=== PATIENT | female | born 1995 ===

== ENCOUNTER 2020-10-25 18:44 | Outpatient (CLI) | payer SELFPAY ==
[2020-10-25 19:14] VITALS: BP 129/80
== END 2020-10-25 20:25 | disposition home or self-care (01) ==
LOC: TRG 18:44 → APU 18:45 → TRG 20:25
PROVIDERS: ATTEND Obstetrics & Gynecology
DX: O46.93 Antepartum hemorrhage, unspecified, third trimester (principal); O26.893 Other specified pregnancy related conditions, third trimester; R10.9 Unspecified abdominal pain; Z3A.38 38 weeks gestation of pregnancy
CPT/HCPCS: 59025

== ENCOUNTER 2020-10-27 02:00 | Inpatient (IN) | payer MEDICAID, OTHER ==
[2020-10-27] MEDS ORDERED: LACTATED RINGERS 1,000 ML IV ONE (02:41)
[2020-10-27 04:01] LABS: Bacteria,Urine 1+ /HPF (Negative); Bilirubin,Urine NEG (Negative); Blood,Urine LG (Negative); Color,Urine Straw (Yellow); Protein,Urine <15 mg/dL mg/dL (Negative); Urobilinogen,Urine < 2.0 mg/dL (<2.0)
[2020-10-27 04:06] LABS: Amphetamine Screen,Urine PRESUMPTIVE NEGATIVE; Benzodiazepines Screen,Urine PRESUMPTIVE NEGATIVE; Cannabinoid Screen,Urine PRESUMPTIVE NEGATIVE; Cocaine Screen,Urine PRESUMPTIVE NEGATIVE; Methadone Screen,Urine PRESUMPTIVE NEGATIVE; Opiate Screen,Urine PRESUMPTIVE NEGATIVE
[2020-10-27] MEDS ORDERED: MINERAL OIL 30 ML ORAL LIQD PO PRN ×2 (05:34→22:00)
[2020-10-27] MEDS ORDERED: TERBUTALINE 1 MG/1 ML INJ SUB-Q PRN (05:34)
[2020-10-27] MEDS ORDERED: ePHEDrine SULFATE 50 MG/1 ML INJ IV PRN ×2 (05:34→14:58)
--- NOTE | 2020-10-27 05:42 | History and Physical Report ---
History of Present Illness Date of examination: 10/27/20 Date of admission: 10/27/2020 Chief complaint: Contractions History of present illness: 25 year old presented to L&D with painful uterine contractions. Patient denies LOF or VB. Patient received care at [facility] and she brings records with her. LMP 01/29/2020. EDC 11/04/2020. significant for the following: rubella nonimmune, anemia, chlamydia (treated, BRAYAN negative). labs are as follows: A+, antibody screen negative, rubella nonimmune, HIV negative, RPR nonreactive, hepatitis B surface antigen negative, gonorrhea negative, chlamydia positive/negative, AFP negative, 1 hour sugar test 84, GBS negative. Patient had category 2 FHR tracing in triage; BPP performed and was 8/8. Variable FHR decelerations noted. Patient has regular contractions and requires pain medications. Due to the above, patient was admitted for 23 hour observation. Past History Past Medical History: no pertinent history Past Surgical History: no surgical history [employer] History: chlamydia (treated during and BRAYAN negative). denies: gonorrhea, hepatitis B, hepatitis C, herpes, HIV, syphilis, trichomonas Family/Genetic History: none Social history: full code. denies: smoking, alcohol abuse, prescription drug abuse, IV drug use - Obstetrical History Expected Date of Delivery: 11/04/20 Actual Gestation: 38 Week(s) 6 Day(s) : 1 Para: 0 Hx # Term Pregnancies: 0 Number of Pregnancies: 0 Spontaneous Abortions: 0 Induced : 0 Number of Living Children: 0 Medications and Allergies Allergies Allergy/AdvReac Type Severity Reaction Status Date / Time No Known Allergies Allergy Unverified 10/25/20 19:41 Active Meds: Active Medications Ephedrine Sulfate (Ephedrine Sulfate 50 Mg/1 Ml Inj) 10 mg IV Q2M PRN PRN Reason: Hypotension Fentanyl (Fentanyl 100 Mcg/2 Ml Inj) 100 mcg IV Q2H PRN PRN Reason: Pain,Severe (7-10) LABOR PAIN Lactated Ringer's (Lactated Ringers) 1,000 mls @ 125 mls/hr IV DIRECT SULEMAN Mineral Oil (Mineral Oil 30 Ml Oral Liqd) 30 ml PO QHS PRN PRN Reason: Constipation Terbutaline Sulfate (Terbutaline 1 Mg/1 Ml Inj) 0.25 mg SUB-Q ONCE PRN PRN Reason: Hyperstimulation/Hypertonicity Review of Systems All systems: negative (contractions) - Vital Signs Vital signs: Vital Signs Pulse BP Pulse Ox 71 138/84 99 10/27/20 02:16 10/27/20 02:16 10/27/20 02:16 Temp Pulse Resp BP Pulse Ox 98.6 F 68 18 126/83 93 10/27/20 02:18 10/27/20 05:25 10/27/20 02:18 10/27/20 05:16 10/27/20 05:25 - Physical Exam Abdomen: Positive: soft. Negative: distention, tenderness, guarding, rigidity Genitourinary (Female): Positive: normal external genitalia, normal perenium. Negative: perineal/vulvar lesions Vagina: Positive: normal moisture Uterus: Positive: enlarged. Negative: tender Anus/Rectum: Positive: normal perianal skin Extremities: Positive: normal. Negative: tenderness, edema - Obstetrical FHR: category 2 FHR comments: Variable FHR decelerations; BPP 8/8; normal MARY. Uterine Contraction Monitor Mode: External Cervical Dilatation: 1 Cervical Effacement Percentage: 80 station: -1 Uterine Contraction Pattern: Regular Uterine Contraction Intensity: Moderate Results All other labs normal. Assessment and Plan A: at 38 weeks, 6 days gestation. Prodromal labor versus false labor: patient requires pain medication. Category 2 FHR tracing. GBS negative. P: Admit for observation. Continuous EFM. IV pain medication. Recheck cervix in several hours.
--- NOTE | 2020-10-27 05:49 | Ultrasound Report ---
ULTRASOUND BIOPHYSICAL PROFILE INDICATION / CLINICAL INFORMATION: Evaluate well-being COMPARISON: None FINDINGS: BREATHING MOVEMENT = 2 GROSS BODY MOVEMENT = 2 TONE = 2 QUALITATIVE AMNIOTIC FLUID VOLUME = 2 TOTAL BIOPHYSICAL SCORE = 12/21 AMNIOTIC FLUID INDEX (cm) = 10.9 PRESENTATION: Cephalic. HEART RATE (beats per minute): 130 IMPRESSION: 1. biophysical profile = 12/21 Signer Name: Ivania Llanes MD Signed: 10/27/2020 5:44 AM Workstation Name: [id number]
[2020-10-27] MEDS: LACTATED RINGERS 1,000 ML IV SCH ×4 (06:36→16:15)
[2020-10-27] MEDS: fentaNYL 100 MCG/2 ML INJ IV PRN ×2 (06:36→12:51)
[2020-10-27 09:28] LABS: Hematocrit 32.8 % (30.3-42.9); Hemoglobin 10.7 gm/dl (10.1-14.3); Mean Corpuscular HGB Conc 33 % (30-34); Mean Corpuscular Volume 89 fl (79-97); Platelet Count 198 K/mm3 (140-440); Red Cell Distribution Width 16.4 % (13.2-15.2)
--- NOTE | 2020-10-27 13:37 | Progress Note ---
Assessment and Plan A: IUP @ 38 6/7 Weeks Category I Tracing Early Labor GBS Negative P: Start Pitocin Augmentation IV Pain Control Subjective - Subjective Date of service: 10/27/20 Patient reports: movement normal, contractions Objective - Vital Signs Vital Signs: Vital Signs - 12hr 10/27/20 10/27/20 10/27/20 02:16 02:18 02:21 Temperature 98.6 F Pulse Rate 82 77 77 Respiratory 18 Rate Blood Pressure 138/84 Blood Pressure 130/90 [Left] O2 Sat by Pulse 99 99 98 Oximetry 10/27/20 10/27/20 10/27/20 02:26 02:31 02:32 Temperature Pulse Rate 91 H 70 74 Respiratory Rate Blood Pressure 130/90 Blood Pressure [Left] O2 Sat by Pulse 99 100 Oximetry 10/27/20 10/27/20 10/27/20 02:36 02:41 02:46 Temperature Pulse Rate 73 78 82 Respiratory Rate Blood Pressure 129/86 Blood Pressure [Left] O2 Sat by Pulse 99 98 99 Oximetry 10/27/20 10/27/20 10/27/20 02:51 03:03 03:08 Temperature Pulse Rate 72 72 79 Respiratory Rate Blood Pressure Blood Pressure [Left] O2 Sat by Pulse 99 100 99 Oximetry 10/27/20 10/27/20 10/27/20 03:13 03:16 03:18 Temperature Pulse Rate 72 67 76 Respiratory Rate Blood Pressure 127/84 Blood Pressure [Left] O2 Sat by Pulse 99 100 Oximetry 10/27/20 10/27/20 10/27/20 03:23 03:28 03:32 Temperature Pulse Rate 78 85 72 Respiratory Rate Blood Pressure 125/81 Blood Pressure [Left] O2 Sat by Pulse 99 99 Oximetry 10/27/20 10/27/20 10/27/20 03:33 03:38 03:43 Temperature Pulse Rate 84 82 78 Respiratory Rate Blood Pressure Blood Pressure [Left] O2 Sat by Pulse 99 99 99 Oximetry 10/27/20 10/27/20 10/27/20 03:46 03:48 03:53 Temperature Pulse Rate 79 86 79 Respiratory Rate Blood Pressure 123/83 Blood Pressure [Left] O2 Sat by Pulse 99 99 Oximetry 10/27/20 10/27/20 10/27/20 03:58 04:02 04:03 Temperature Pulse Rate 78 77 77 Respiratory Rate Blood Pressure 121/83 Blood Pressure [Left] O2 Sat by Pulse 99 100 Oximetry 10/27/20 10/27/20 10/27/20 04:08 04:13 04:17 Temperature Pulse Rate 82 74 83 Respiratory Rate Blood Pressure 131/83 Blood Pressure [Left] O2 Sat by Pulse 99 99 Oximetry 10/27/20 10/27/20 10/27/20 04:18 04:23 04:28 Temperature Pulse Rate 81 77 73 Respiratory Rate Blood Pressure Blood Pressure [Left] O2 Sat by Pulse 99 99 99 Oximetry 10/27/20 10/27/20 10/27/20 04:31 04:33 04:38 Temperature Pulse Rate 77 77 79 Respiratory Rate Blood Pressure 120/75 Blood Pressure [Left] O2 Sat by Pulse 99 99 Oximetry 10/27/20 10/27/20 10/27/20 04:43 04:47 04:48 Temperature Pulse Rate 85 75 87 Respiratory Rate Blood Pressure 131/78 Blood Pressure [Left] O2 Sat by Pulse 99 99 Oximetry 10/27/20 10/27/20 10/27/20 04:53 04:58 05:02 Temperature Pulse Rate 79 83 80 Respiratory Rate Blood Pressure 125/80 Blood Pressure [Left] O2 Sat by Pulse 99 99 Oximetry 10/27/20 10/27/20 10/27/20 05:03 05:08 05:09 Temperature Pulse Rate 85 86 79 Respiratory Rate Blood Pressure Blood Pressure [Left] O2 Sat by Pulse 99 99 93 Oximetry 10/27/20 10/27/20 10/27/20 05:13 05:16 05:18 Temperature Pulse Rate 85 76 77 Respiratory Rate Blood Pressure 126/83 Blood Pressure [Left] O2 Sat by Pulse 99 98 Oximetry 10/27/20 10/27/20 10/27/20 05:23 05:25 05:42 Temperature Pulse Rate 79 68 Respiratory Rate Blood Pressure Blood Pressure [Left] O2 Sat by Pulse 99 93 78 L Oximetry 10/27/20 10/27/20 10/27/20 06:16 06:33 06:36 Temperature Pulse Rate 76 81 Respiratory 18 Rate Blood Pressure 118/86 120/79 Blood Pressure [Left] O2 Sat by Pulse Oximetry 10/27/20 10/27/20 10/27/20 06:41 06:42 06:45 Temperature Pulse Rate 89 88 Respiratory Rate Blood Pressure 127/77 Blood Pressure [Left] O2 Sat by Pulse 88 99 Oximetry 10/27/20 10/27/20 10/27/20 06:47 06:52 06:57 Temperature Pulse Rate 86 82 81 Respiratory Rate Blood Pressure Blood Pressure [Left] O2 Sat by Pulse 98 98 97 Oximetry 10/27/20 10/27/20 10/27/20 07:01 07:02 07:07 Temperature Pulse Rate 77 89 77 Respiratory Rate Blood Pressure 110/68 Blood Pressure [Left] O2 Sat by Pulse 97 98 Oximetry 10/27/20 10/27/20 10/27/20 07:12 07:17 07:22 Temperature Pulse Rate 90 71 77 Respiratory Rate Blood Pressure 111/70 Blood Pressure [Left] O2 Sat by Pulse 97 98 99 Oximetry 10/27/20 10/27/20 10/27/20 07:24 07:27 07:31 Temperature 97.3 F L Pulse Rate 83 85 Respiratory 16 Rate Blood Pressure 98/64 Blood Pressure [Left] O2 Sat by Pulse 98 Oximetry 10/27/20 10/27/20 10/27/20 07:32 07:37 07:42 Temperature Pulse Rate 89 75 84 Respiratory Rate Blood Pressure Blood Pressure [Left] O2 Sat by Pulse 99 99 98 Oximetry 10/27/20 10/27/20 10/27/20 07:46 07:47 07:52 Temperature Pulse Rate 83 76 78 Respiratory Rate Blood Pressure 111/63 Blood Pressure [Left] O2 Sat by Pulse 100 99 Oximetry 10/27/20 10/27/20 10/27/20 07:57 08:01 08:02 Temperature Pulse Rate 69 72 84 Respiratory Rate Blood Pressure 123/80 Blood Pressure [Left] O2 Sat by Pulse 99 100 Oximetry 10/27/20 10/27/20 10/27/20 08:07 08:12 08:16 Temperature Pulse Rate 76 75 68 Respiratory Rate Blood Pressure 121/79 Blood Pressure [Left] O2 Sat by Pulse 99 99 Oximetry 10/27/20 10/27/20 10/27/20 08:17 08:22 08:27 Temperature Pulse Rate 70 73 72 Respiratory Rate Blood Pressure Blood Pressure [Left] O2 Sat by Pulse 99 98 99 Oximetry 10/27/20 10/27/20 10/27/20 08:31 08:32 08:37 Temperature Pulse Rate 75 72 71 Respiratory Rate Blood Pressure 125/82 Blood Pressure [Left] O2 Sat by Pulse 99 99 Oximetry 10/27/20 10/27/20 10/27/20 08:42 08:47 08:52 Temperature Pulse Rate 73 76 71 Respiratory Rate Blood Pressure Blood Pressure [Left] O2 Sat by Pulse 99 99 99 Oximetry 10/27/20 10/27/20 10/27/20 08:57 09:01 09:02 Temperature Pulse Rate 67 81 72 Respiratory Rate Blood Pressure 122/71 Blood Pressure [Left] O2 Sat by Pulse 99 99 Oximetry 10/27/20 10/27/20 10/27/20 09:07 09:12 09:17 Temperature Pulse Rate 89 72 74 Respiratory Rate Blood Pressure 132/89 Blood Pressure [Left] O2 Sat by Pulse 100 99 99 Oximetry 10/27/20 10/27/20 10/27/20 09:28 09:31 09:32 Temperature Pulse Rate 69 63 66 Respiratory Rate Blood Pressure 129/78 130/84 Blood Pressure [Left] O2 Sat by Pulse 99 Oximetry 10/27/20 10/27/20 10/27/20 09:33 09:38 09:43 Temperature Pulse Rate 74 75 76 Respiratory Rate Blood Pressure Blood Pressure [Left] O2 Sat by Pulse 100 99 99 Oximetry 10/27/20 10/27/20 10/27/20 09:48 09:53 09:58 Temperature Pulse Rate 69 81 91 H Respiratory Rate Blood Pressure Blood Pressure [Left] O2 Sat by Pulse 99 100 99 Oximetry 10/27/20 10/27/20 10/27/20 10:03 10:08 10:13 Temperature Pulse Rate 68 77 71 Respiratory Rate Blood Pressure Blood Pressure [Left] O2 Sat by Pulse 99 99 99 Oximetry 10/27/20 10/27/20 10/27/20 10:18 10:23 10:28 Temperature Pulse Rate 83 73 76 Respiratory Rate Blood Pressure Blood Pressure [Left] O2 Sat by Pulse 99 99 99 Oximetry 10/27/20 10/27/20 10/27/20 10:33 10:38 10:43 Temperature Pulse Rate 74 97 H 65 Respiratory Rate Blood Pressure 96/62 Blood Pressure [Left] O2 Sat by Pulse 99 99 99 Oximetry 10/27/20 10/27/20 10/27/20 10:48 10:53 10:58 Temperature Pulse Rate 64 73 77 Respiratory Rate Blood Pressure Blood Pressure [Left] O2 Sat by Pulse 99 99 99 Oximetry 10/27/20 10/27/20 10/27/20 11:03 11:08 11:13 Temperature Pulse Rate 78 79 68 Respiratory Rate Blood Pressure Blood Pressure [Left] O2 Sat by Pulse 99 99 99 Oximetry 10/27/20 10/27/20 10/27/20 11:18 11:23 11:28 Temperature Pulse Rate 79 68 70 Respiratory Rate Blood Pressure Blood Pressure [Left] O2 Sat by Pulse 100 100 99 Oximetry 10/27/20 10/27/20 10/27/20 11:33 11:38 11:43 Temperature Pulse Rate 90 71 77 Respiratory Rate Blood Pressure 113/82 Blood Pressure [Left] O2 Sat by Pulse 100 99 99 Oximetry 10/27/20 10/27/20 10/27/20 11:48 11:53 11:58 Temperature Pulse Rate 69 93 H 66 Respiratory Rate Blood Pressure Blood Pressure [Left] O2 Sat by Pulse 99 100 99 Oximetry 10/27/20 10/27/20 10/27/20 12:03 12:11 12:15 Temperature 98.4 F Pulse Rate 71 Respiratory 18 Rate Blood Pressure Blood Pressure [Left] O2 Sat by Pulse 99 100 Oximetry 10/27/20 10/27/20 10/27/20 12:18 12:20 12:25 Temperature Pulse Rate 67 71 81 Respiratory Rate Blood Pressure 118/76 Blood Pressure [Left] O2 Sat by Pulse 99 100 Oximetry 10/27/20 10/27/20 10/27/20 12:30 12:34 12:35 Temperature Pulse Rate 69 74 77 Respiratory Rate Blood Pressure 109/71 Blood Pressure [Left] O2 Sat by Pulse 99 99 Oximetry 10/27/20 10/27/20 10/27/20 12:40 12:45 12:50 Temperature Pulse Rate 86 70 74 Respiratory Rate Blood Pressure Blood Pressure [Left] O2 Sat by Pulse 100 99 99 Oximetry 10/27/20 10/27/20 10/27/20 12:55 13:00 13:05 Temperature Pulse Rate 79 91 H 85 Respiratory Rate Blood Pressure Blood Pressure [Left] O2 Sat by Pulse 99 97 98 Oximetry 10/27/20 10/27/20 10/27/20 13:10 13:15 13:20 Temperature Pulse Rate 78 81 78 Respiratory Rate Blood Pressure Blood Pressure [Left] O2 Sat by Pulse 98 99 98 Oximetry 10/27/20 10/27/2021 13:25 13:30 13:34 Temperature Pulse Rate 83 77 68 Respiratory Rate Blood Pressure 114/70 Blood Pressure [Left] O2 Sat by Pulse 99 99 Oximetry - Exam Cardiovascular: Regular rate Lungs: Normal air movement Abdomen: Present: normal appearance, soft Uterus: Present: normal, firm, fundal height above umbilicus FHR: category 1 Uterine Contraction Monitor Mode: External Cervical Dilatation: 3 (Vtx; Intact) Cervical Effacement Percentage: 80 station: -2 Uterine Contraction Frequency (min): 3-5 Uterine Contraction Pattern: Regular Uterine Tone Measurement Phase: Resting Uterine Contraction Intensity: Moderate Extremities: normal - Labs Labs: Abnormal Labs 10/27/20 08:41 WBC 12.9 H RDW 16.4 H Laboratory Results - last 24 hr 10/27/20 10/27/20 10/27/20 03:05 03:05 08:41 WBC 12.9 H RBC 3.70 Hgb 10.7 Hct 32.8 MCV 89 MCH 29 MCHC 33 RDW 16.4 H Plt Count 198 Urine Color Straw Urine Turbidity Clear Urine pH 6.0 Ur Specific [place] 1.006 Urine Protein <15 mg/dl Urine Glucose (UA) Neg Urine Ketones Neg Urine Blood Lg Urine Nitrite Neg Urine Bilirubin Neg Urine Urobilinogen < 2.0 Ur Leukocyte Esterase Sm Urine WBC (Auto) 3.0 Urine RBC (Auto) 3.0 U Epithel Cells (Auto) 1.0 Urine Bacteria (Auto) 1+ Urine Opiates Screen Presumptive negative Urine Methadone Screen Presumptive negative Ur Barbiturates Screen Presumptive negative Ur Phencyclidine Scrn Presumptive negative Ur Amphetamines Screen Presumptive negative U Benzodiazepines Scrn Presumptive negative Urine Cocaine Screen Presumptive negative U Marijuana (THC) Screen Presumptive negative Drugs of Abuse Note Disclamer Blood Type Antibody Screen 10/27/20 08:41 WBC RBC Hgb Hct MCV MCH MCHC RDW Plt Count Urine Color Urine Turbidity Urine pH Ur Specific [place] Urine Protein Urine Glucose (UA) Urine Ketones Urine Blood Urine Nitrite Urine Bilirubin Urine Urobilinogen Ur Leukocyte Esterase Urine WBC (Auto) Urine RBC (Auto) U Epithel Cells (Auto) Urine Bacteria (Auto) Urine Opiates Screen Urine Methadone Screen Ur Barbiturates Screen Ur Phencyclidine Scrn Ur Amphetamines Screen U Benzodiazepines Scrn Urine Cocaine Screen U Marijuana (THC) Screen Drugs of Abuse Note Blood Type A POSITIVE Antibody Screen Negative
[2020-10-27] MEDS ORDERED: LIDOCAINE (2%) 20 MG/1 ML VIAL 20 ML MDV INFILTRATI ONE (13:49)
[2020-10-27] MEDS ORDERED: miSOPROStol 200 MCG TAB PR PRN (13:49)
[2020-10-27] MEDS ORDERED: OXYTOCIN DRIP 30 UNITS/500 ML BAG IV SCH ×2 (14:00)
[2020-10-27] MEDS ORDERED: NALOXONE 0.4 MG/1 ML INJ IV PRN (14:00)
[2020-10-27] MEDS ORDERED: BUTORPHANOL 2 MG/1 ML INJ IV PRN (14:30)
[2020-10-27] MEDS ORDERED: NALOXONE 2 MG/2 ML INJ IV PRN (14:58)
--- NOTE | 2020-10-27 14:59 | Anesthesia Consultation ---
Anesthesia Consult and Med Hx Date of service: 10/27/20 - Airway Anesthetic Teeth Evaluation: Good ROM Head & Neck: Adequate Mental/Hyoid Distance: Adequate Mallampati Class: Class II Intubation Access Assessment: Probably Good - Pulmonary Exam CTA: Yes - Cardiac Exam Cardiac Exam: RRR - Pre-Operative Health Status ASA Pre-Surgery Classification: ASA2 Proposed Anesthetic Plan: Epidural - Pulmonary Hx Asthma: No COPD: No Hx Pneumonia: No - Endocrine Hx End Stage Renal Disease: No - Other Systems Hx Alcohol Use: No
[2020-10-27] MEDS ORDERED: ONDANSETRON 4 MG/2 ML INJ IV PRN ×2 (15:00→22:23)
[2020-10-27] MEDS ORDERED: fentaNYL-BUPIV 2 MCG/ML-0.125% 200 MCG/100 ML BAG EPIDURAL SCH (15:00)
--- NOTE | 2020-10-27 15:23 | Progress Note ---
Labor Epidural - Labor Epidural Start Time: 15:05 Stop Time: 15:11 Performed by:: JESUS FARIAS Procedure: Patient is requesting epidural for labor pain. H&P, and labs reviewed. Procedure explained, questions answered, consent obtained. Patient in sitting position with blood pressure cuff and pulse ox on and working. Timeout performed immediately before start of procedure. Sterile chlorahexadine 0.5% prep/drape. 3 mL 1% lidocaine skin wheal at L[3]-L[4]. 18-gauge SeatIDtead epidural needle advanced to [id number] with saline at [7] cm. 27-gauge spinal needle advanced until clear, free-flowing CSF. Intrathecal dexmedetomidine [5] mcg administered and needle removed. Epidural catheter advanced to [12] cm, negative aspiration for blood and csf, negative test dose 3 ml 1.5% lidocaine with epinephrine. Sterile steri-strips and tegaderm applied, followed by tape reinforcement. Patient tolerated procedure well.
[2020-10-27] MEDS ORDERED: WITCH HAZEL/ GLYCERIN PAD TP PRN (22:23)
[2020-10-27] MEDS ORDERED: ACETAMINOPHEN 325 MG TAB PO PRN (22:23)
[2020-10-27] MEDS ORDERED: PROMETHAZINE 25 MG RECT SUPP PR PRN (22:23)
[2020-10-27] MEDS ORDERED: PROMETHAZINE 25 MG TAB PO PRN (22:23)
[2020-10-27] MEDS ORDERED: MAGNESIUM HYDROXIDE (MOM) ORAL LIQD UDC PO PRN (22:23)
[2020-10-27] MEDS ORDERED: LANOLIN/ZINC/DIMETHICONE (LANSINOH) 7 GM TP PRN (22:23)
[2020-10-27] MEDS ORDERED: diphenhydrAMINE 25 MG CAP PO PRN (22:23)
[2020-10-27] MEDS ORDERED: HYDROcodone/ACETAMINOPHEN 5-325 MG TAB PO PRN (22:23)
--- NOTE | 2020-10-27 22:32 | Progress Note ---
Subjective Date of service: 10/27/20 Principal diagnosis: term , labor Interval history: see . Objective - Constitutional Vitals: Vital Signs - 12hr 10/27/20 10/27/20 10/27/20 10:33 10:38 10:43 Temperature Pulse Rate 74 97 H 65 Respiratory Rate Blood Pressure 96/62 Blood Pressure [Left] O2 Sat by Pulse 99 99 99 Oximetry 10/27/20 10/27/20 10/27/20 10:48 10:53 10:58 Temperature Pulse Rate 64 73 77 Respiratory Rate Blood Pressure Blood Pressure [Left] O2 Sat by Pulse 99 99 99 Oximetry 10/27/20 10/27/20 10/27/20 11:03 11:08 11:13 Temperature Pulse Rate 78 79 68 Respiratory Rate Blood Pressure Blood Pressure [Left] O2 Sat by Pulse 99 99 99 Oximetry 10/27/20 10/27/20 10/27/20 11:18 11:23 11:28 Temperature Pulse Rate 79 68 70 Respiratory Rate Blood Pressure Blood Pressure [Left] O2 Sat by Pulse 100 100 99 Oximetry 10/27/20 10/27/20 10/27/20 11:33 11:38 11:43 Temperature Pulse Rate 90 71 77 Respiratory Rate Blood Pressure 113/82 Blood Pressure [Left] O2 Sat by Pulse 100 99 99 Oximetry 10/27/20 10/27/20 10/27/20 11:48 11:53 11:58 Temperature Pulse Rate 69 93 H 66 Respiratory Rate Blood Pressure Blood Pressure [Left] O2 Sat by Pulse 99 100 99 Oximetry 10/27/20 10/27/20 10/27/20 12:03 12:11 12:15 Temperature 98.4 F Pulse Rate 71 Respiratory 18 Rate Blood Pressure Blood Pressure [Left] O2 Sat by Pulse 99 100 Oximetry 10/27/20 10/27/20 10/27/20 12:18 12:20 12:25 Temperature Pulse Rate 67 71 81 Respiratory Rate Blood Pressure 118/76 Blood Pressure [Left] O2 Sat by Pulse 99 100 Oximetry 10/27/20 10/27/20 10/27/20 12:30 12:34 12:35 Temperature Pulse Rate 69 74 77 Respiratory Rate Blood Pressure 109/71 Blood Pressure [Left] O2 Sat by Pulse 99 99 Oximetry 10/27/20 10/27/20 10/27/20 12:40 12:45 12:50 Temperature Pulse Rate 86 70 74 Respiratory Rate Blood Pressure Blood Pressure [Left] O2 Sat by Pulse 100 99 99 Oximetry 10/27/20 10/27/20 10/27/20 12:55 13:00 13:05 Temperature Pulse Rate 79 91 H 85 Respiratory Rate Blood Pressure Blood Pressure [Left] O2 Sat by Pulse 99 97 98 Oximetry 10/27/20 10/27/20 10/27/20 13:10 13:15 13:20 Temperature Pulse Rate 78 81 78 Respiratory Rate Blood Pressure Blood Pressure [Left] O2 Sat by Pulse 98 99 98 Oximetry 10/27/20 10/27/20 10/27/20 13:25 13:30 13:34 Temperature Pulse Rate 83 77 68 Respiratory Rate Blood Pressure 114/70 Blood Pressure [Left] O2 Sat by Pulse 99 99 Oximetry 10/27/20 10/27/20 10/27/20 13:35 13:40 13:45 Temperature Pulse Rate 78 77 77 Respiratory Rate Blood Pressure Blood Pressure [Left] O2 Sat by Pulse 99 99 98 Oximetry 10/27/20 10/27/20 10/27/20 13:50 13:55 14:00 Temperature Pulse Rate 101 H 73 70 Respiratory Rate Blood Pressure Blood Pressure [Left] O2 Sat by Pulse 98 98 99 Oximetry 10/27/20 10/27/20 10/27/20 14:05 14:10 14:15 Temperature Pulse Rate 66 73 87 Respiratory Rate Blood Pressure Blood Pressure [Left] O2 Sat by Pulse 98 99 98 Oximetry 10/27/20 10/27/20 10/27/20 14:20 14:25 14:30 Temperature Pulse Rate 66 65 83 Respiratory Rate Blood Pressure Blood Pressure [Left] O2 Sat by Pulse 98 99 99 Oximetry 10/27/20 10/27/20 10/27/20 14:33 14:35 14:44 Temperature Pulse Rate 71 73 76 Respiratory Rate Blood Pressure 107/64 Blood Pressure [Left] O2 Sat by Pulse 100 99 Oximetry 10/27/20 10/27/20 10/27/20 14:49 14:54 14:59 Temperature Pulse Rate 71 70 88 Respiratory Rate Blood Pressure Blood Pressure [Left] O2 Sat by Pulse 99 99 99 Oximetry 10/27/20 10/27/20 10/27/20 15:04 15:09 15:12 Temperature Pulse Rate 75 74 77 Respiratory Rate Blood Pressure 130/74 Blood Pressure [Left] O2 Sat by Pulse 99 99 Oximetry 10/27/20 10/27/20 10/27/20 15:14 15:15 15:18 Temperature Pulse Rate 89 85 74 Respiratory Rate Blood Pressure 122/74 108/60 Blood Pressure [Left] O2 Sat by Pulse 100 Oximetry 10/27/20 10/27/20 10/27/20 15:19 15:21 15:24 Temperature Pulse Rate 73 70 74 Respiratory Rate Blood Pressure 108/63 107/61 Blood Pressure [Left] O2 Sat by Pulse 100 100 Oximetry 10/27/20 10/27/20 10/27/20 15:27 15:29 15:30 Temperature Pulse Rate 71 74 62 Respiratory Rate Blood Pressure 107/61 108/61 Blood Pressure [Left] O2 Sat by Pulse 99 Oximetry 10/27/20 10/27/20 10/27/20 15:33 15:34 15:36 Temperature Pulse Rate 70 72 68 Respiratory Rate Blood Pressure 101/56 96/55 Blood Pressure [Left] O2 Sat by Pulse 98 Oximetry 10/27/20 10/27/20 10/27/20 15:39 15:42 15:44 Temperature Pulse Rate 68 70 72 Respiratory Rate Blood Pressure 106/55 105/51 Blood Pressure [Left] O2 Sat by Pulse 98 98 Oximetry 10/27/20 10/27/20 10/27/20 15:46 15:49 15:52 Temperature 98.1 F Pulse Rate 76 74 68 Respiratory 16 Rate Blood Pressure 96/50 113/64 Blood Pressure [Left] O2 Sat by Pulse 99 99 Oximetry 10/27/20 10/27/20 10/27/20 15:54 15:56 15:59 Temperature Pulse Rate 78 73 67 Respiratory Rate Blood Pressure 106/60 Blood Pressure [Left] O2 Sat by Pulse 97 99 Oximetry 10/27/20 10/27/20 10/27/20 16:01 16:04 16:06 Temperature Pulse Rate 73 79 77 Respiratory Rate Blood Pressure 110/67 106/66 Blood Pressure [Left] O2 Sat by Pulse 99 Oximetry 10/27/20 10/27/20 10/27/20 16:09 16:11 16:14 Temperature Pulse Rate 89 68 80 Respiratory Rate Blood Pressure 115/71 Blood Pressure [Left] O2 Sat by Pulse 99 99 Oximetry 10/27/20 10/27/20 10/27/20 16:17 16:19 16:23 Temperature Pulse Rate 67 65 68 Respiratory Rate Blood Pressure 117/70 117/73 Blood Pressure [Left] O2 Sat by Pulse 99 Oximetry 10/27/20 10/27/20 10/27/20 16:24 16:29 16:34 Temperature Pulse Rate 66 68 67 Respiratory Rate Blood Pressure Blood Pressure [Left] O2 Sat by Pulse 98 98 98 Oximetry 10/27/20 10/27/20 10/27/20 16:39 16:44 16:49 Temperature Pulse Rate 65 68 65 Respiratory Rate Blood Pressure Blood Pressure [Left] O2 Sat by Pulse 98 98 98 Oximetry 10/27/20 10/27/20 10/27/20 16:54 16:59 17:04 Temperature Pulse Rate 65 63 66 Respiratory Rate Blood Pressure 116/69 Blood Pressure [Left] O2 Sat by Pulse 99 98 98 Oximetry 10/27/20 10/27/20 10/27/20 17:09 17:14 17:19 Temperature Pulse Rate 68 68 68 Respiratory Rate Blood Pressure 117/71 Blood Pressure [Left] O2 Sat by Pulse 99 98 99 Oximetry 10/27/20 10/27/20 10/27/20 17:24 17:29 17:34 Temperature Pulse Rate 64 68 74 Respiratory Rate Blood Pressure 108/65 Blood Pressure [Left] O2 Sat by Pulse 98 99 99 Oximetry 10/27/20 10/27/20 10/27/20 17:39 17:44 17:49 Temperature Pulse Rate 70 70 89 Respiratory Rate Blood Pressure 108/65 Blood Pressure [Left] O2 Sat by Pulse 98 98 99 Oximetry 10/27/20 10/27/20 10/27/20 17:54 17:59 18:04 Temperature Pulse Rate 66 74 71 Respiratory Rate Blood Pressure 116/71 Blood Pressure [Left] O2 Sat by Pulse 99 99 99 Oximetry 10/27/20 10/27/20 10/27/20 18:09 18:14 18:19 Temperature Pulse Rate 79 77 91 H Respiratory Rate Blood Pressure 110/70 Blood Pressure [Left] O2 Sat by Pulse 98 98 98 Oximetry 10/27/20 10/27/20 10/27/20 18:24 18:29 18:34 Temperature Pulse Rate 114 H 76 75 Respiratory Rate Blood Pressure 105/76 Blood Pressure [Left] O2 Sat by Pulse 99 98 100 Oximetry 10/27/20 10/27/2021 18:39 18:40 18:44 Temperature Pulse Rate 80 75 69 Respiratory Rate Blood Pressure 122/80 Blood Pressure [Left] O2 Sat by Pulse 99 100 Oximetry 10/27/20 10/27/20 10/27/20 18:49 18:54 18:59 Temperature Pulse Rate 76 74 76 Respiratory Rate Blood Pressure 121/80 Blood Pressure [Left] O2 Sat by Pulse 98 100 99 Oximetry 10/27/20 10/27/20 10/27/20 19:04 19:09 19:14 Temperature Pulse Rate 77 71 69 Respiratory Rate Blood Pressure 131/82 Blood Pressure [Left] O2 Sat by Pulse 100 100 100 Oximetry 10/27/20 10/27/20 10/27/20 19:19 19:24 19:29 Temperature 97.7 F Pulse Rate 71 75 72 Respiratory 16 Rate Blood Pressure Blood Pressure 131/82 [Left] O2 Sat by Pulse 100 99 99 Oximetry 10/27/20 10/27/20 10/27/20 19:34 19:39 19:44 Temperature Pulse Rate 72 70 70 Respiratory Rate Blood Pressure Blood Pressure [Left] O2 Sat by Pulse 99 100 100 Oximetry 10/27/20 10/27/20 10/27/20 19:49 19:54 19:59 Temperature Pulse Rate 74 76 68 Respiratory Rate Blood Pressure Blood Pressure [Left] O2 Sat by Pulse 99 99 100 Oximetry 10/27/20 10/27/20 10/27/20 20:04 20:05 20:09 Temperature Pulse Rate 68 71 78 Respiratory Rate Blood Pressure 135/84 Blood Pressure [Left] O2 Sat by Pulse 99 99 Oximetry 10/27/20 10/27/20 10/27/20 20:14 20:19 20:24 Temperature Pulse Rate 73 70 69 Respiratory Rate Blood Pressure Blood Pressure [Left] O2 Sat by Pulse 100 100 100 Oximetry 10/27/20 10/27/20 10/27/20 20:29 20:34 20:39 Temperature Pulse Rate 70 66 64 Respiratory Rate Blood Pressure Blood Pressure [Left] O2 Sat by Pulse 100 100 99 Oximetry 10/27/20 10/27/20 10/27/20 20:44 20:49 20:50 Temperature Pulse Rate 69 75 86 Respiratory Rate Blood Pressure 101/64 Blood Pressure [Left] O2 Sat by Pulse 99 100 Oximetry 10/27/20 10/27/2021 20:54 20:59 21:04 Temperature Pulse Rate 71 68 73 Respiratory Rate Blood Pressure Blood Pressure [Left] O2 Sat by Pulse 99 100 99 Oximetry 10/27/20 10/27/20 10/27/20 21:09 21:14 21:19 Temperature Pulse Rate 78 67 76 Respiratory Rate Blood Pressure Blood Pressure [Left] O2 Sat by Pulse 99 100 99 Oximetry 10/27/20 10/27/20 10/27/20 21:24 21:29 21:34 Temperature Pulse Rate 71 116 H 89 Respiratory Rate Blood Pressure Blood Pressure [Left] O2 Sat by Pulse 99 99 99 Oximetry 10/27/20 10/27/20 10/27/20 21:36 21:39 21:44 Temperature Pulse Rate 68 108 H 83 Respiratory Rate Blood Pressure 130/82 Blood Pressure [Left] O2 Sat by Pulse 97 100 Oximetry 10/27/20 10/27/20 10/27/20 21:49 21:54 21:59 Temperature Pulse Rate 109 H 81 76 Respiratory Rate Blood Pressure Blood Pressure [Left] O2 Sat by Pulse 98 100 99 Oximetry 10/27/20 10/27/20 10/27/20 22:04 22:09 22:14 Temperature Pulse Rate 130 H 103 H 105 H Respiratory Rate Blood Pressure Blood Pressure [Left] O2 Sat by Pulse 99 100 99 Oximetry 10/27/20 10/27/20 22:19 22:24 Temperature Pulse Rate 87 104 H Respiratory Rate Blood Pressure Blood Pressure [Left] O2 Sat by Pulse 100 100 Oximetry General appearance: Present: no acute distress, well-nourished - EENT Eyes: PERRL, EOM intact ENT: hearing intact, clear oral mucosa Ears: bilateral: normal - Labs CBC & Chem 7: 10/27/20 08:41 Labs: Abnormal lab results 10/27/20 Range/Units 08:41 WBC 12.9 H (4.5-11.0) K/mm3 RDW 16.4 H (13.2-15.2) % Medications & Allergies - Medications Allergies/Adverse Reactions: Allergies No Known Allergies Allergy (Unverified 10/25/20 19:41) Home Medications: Home Medications Medication Instructions Recorded Confirmed Last Taken Type One Daily Tablet 1 tab PO DAILY 10/27/20 10/27/20 2 Days Ago History ~10/25/20 Active Medications: Generic Name Dose Route Start Last Admin Trade Name Freq PRN Reason Stop Dose Admin Butorphanol Tartrate 2 mg 10/27/20 14:30 Butorphanol 2 Mg/1 Ml Inj IV Q2H PRN Pain , Severe (7-10) Ephedrine Sulfate 10 mg 10/27/20 14:58 Ephedrine Sulfate 50 Mg/1 Ml Inj IV Q2M PRN Hypotension Fentanyl 100 mcg 10/27/20 05:34 10/27/20 12:51 Fentanyl 100 Mcg/2 Ml Inj IV 100 mcg Q2H PRN Administration Pain,Severe (7-10) LABOR PAIN Lactated Ringer's 1,000 mls @ 125 mls/hr 10/27/20 05:45 10/27/20 16:15 Lactated Ringers IV 125 mls/hr DIRECT [facility] Administration Oxytocin/Sodium Chloride 30 units in 500 mls @ 2 mls/hr 10/27/20 14:00 10/27/20 17:20 Pitocin/Ns 30 Unit/500ml IV 8 ml/hr TITR [facility] 8 mls/hr Titration Protocol Oxytocin/Sodium Chloride 30 units in 500 mls @ 40 mls/hr 10/27/20 14:00 Pitocin/Ns 30 Unit/500ml IV TITR [facility] Protocol Fentanyl/Bupivacaine/Sodium Chlor 200 mcg in 100 mls @ 12 mls/hr 10/27/20 15:00 10/27/20 15:35 Fentanyl-Bupiv 2 Mcg/Ml-0.125% EPIDURAL 12 mls/hr TITR [facility] Administration Protocol Mineral Oil 30 ml 10/27/20 22:00 Mineral Oil 30 Ml Oral Liqd PO QHS PRN Constipation Misoprostol 800 mcg 10/27/20 13:49 Misoprostol 200 Mcg Tab CO 10/28/20 13:48 ONCE PRN Uterine Bleeding Naloxone HCl 0.1 mg 10/27/20 14:00 Naloxone 0.4 Mg/1 Ml Inj IV Q2MIN PRN Res Rate </= 8 or 02 SAT < 92% Naloxone HCl 0.2 mg 10/27/20 14:58 Naloxone 2 Mg/2 Ml Inj IV Q5M PRN Respiratory sedation Ondansetron HCl 4 mg 10/27/20 15:00 Ondansetron 4 Mg/2 Ml Inj IV Q8H PRN Nausea And Vomiting Ondansetron HCl 4 mg 10/27/20 22:23 Ondansetron 4 Mg/2 Ml Inj IV Q8H PRN Nausea And Vomiting Promethazine HCl 25 mg 10/27/20 22:23 Promethazine 25 Mg Rect Supp CO Q6H PRN Nausea And Vomiting Promethazine HCl 25 mg 10/27/20 22:23 Promethazine 25 Mg Tab PO Q6H PRN Nausea And Vomiting Terbutaline Sulfate 0.25 mg 10/27/20 05:34 Terbutaline 1 Mg/1 Ml Inj SUB-Q ONCE PRN Hyperstimulation/Hypertonicity
--- NOTE | 2020-10-27 22:36 | Procedure Note ---
Date of procedure: 10/27/20 Pre-op diagnosis: term , labor Post-op diagnosis: same Procedure: OUTLET VACUM. NO EPISIOTOMY. NO TEARS. RECTAL MUCOSA IS INTACT LIVE BORN MALE, 6'14", 8,9. Anesthesia: epidural Surgeon: DARIA CROSS Estimated blood loss: other (250 CCS) Pathology: none Specimen disposition: discarded Condition: stable Disposition: floor
[2020-10-28] MEDS: IBUPROFEN 600 MG TAB PO SCH ×4 (04:42→21:51)
[2020-10-28] MEDS ORDERED: TETANUS,DIPH,PERTUSS(ACELL) VACCINE 0.5 ML SYRINGE IM ONE (06:00)
--- NOTE | 2020-10-28 09:14 | Progress Note ---
Assessment and Plan PPD #1 A: S/P vaccum assisted delivery P: Continue routine pp care Subjective - Subjective Date of service: 10/28/20 Principal diagnosis: term , labor Patient reports: appetite normal, voiding normally, pain well controlled, ambulating normally [place]: doing well, bottle feeding Objective - Vital Signs Latest vital signs: Vital Signs Temp Pulse Resp BP BP Pulse Ox 10/28/20 07:37 98.9 F 100 H 20 114/69 97 10/28/20 04:51 98.6 F 83 16 112/76 10/28/20 00:55 99.0 F 63 18 147/74 99 10/28/20 00:29 61 63 L 10/28/20 00:24 75 98 10/28/20 00:23 68 130/76 10/28/20 00:19 71 99 10/28/20 00:14 78 99 10/28/20 00:09 87 98 10/28/20 00:08 102 H 139/84 10/28/20 00:04 76 98 10/27/20 23:59 73 99 10/27/20 23:56 73 146/75 10/27/20 23:54 72 99 10/27/20 23:53 69 155/69 10/27/20 23:49 75 99 10/27/20 23:44 75 99 10/27/20 23:39 74 147/65 99 10/27/20 23:34 79 100 10/27/20 23:29 100 H 99 10/27/20 23:24 72 100 10/27/20 23:23 98.1 F 68 17 135/86 10/27/20 23:20 80 147/74 10/27/20 23:19 82 99 10/27/20 23:14 80 99 10/27/20 23:09 88 170/79 99 10/27/20 23:04 97 H 99 10/27/20 23:02 92 H 89 10/27/20 22:59 89 97 10/27/20 22:54 110 H 100 10/27/20 22:49 93 H 100 10/27/20 22:44 82 100 10/27/20 22:39 100 H 99 10/27/20 22:34 95 H 99 10/27/20 22:29 93 H 100 10/27/20 22:24 104 H 100 10/27/20 22:19 87 100 06/14/21 22:14 105 H 99 10/27/20 22:09 103 H 100 10/27/20 22:04 130 H 99 10/27/20 21:59 76 99 10/27/20 21:54 81 100 10/27/20 21:49 109 H 98 10/27/20 21:44 83 100 10/27/20 21:39 108 H 97 10/27/20 21:36 68 130/82 10/27/20 21:34 89 99 10/27/20 21:29 116 H 99 10/27/20 21:24 71 99 10/27/20 21:19 76 99 10/27/20 21:14 67 100 10/27/20 21:09 78 99 10/27/20 21:04 73 99 10/27/20 20:59 68 100 10/27/20 20:54 71 99 10/27/20 20:50 86 101/64 10/27/20 20:49 75 100 10/27/20 20:44 69 99 10/27/20 20:39 64 99 10/27/20 20:34 66 100 10/27/20 20:29 70 100 10/27/20 20:24 69 100 10/27/20 20:19 70 100 10/27/20 20:14 73 100 10/27/20 20:09 78 99 10/27/20 20:05 71 135/84 10/27/20 20:04 68 99 10/27/20 19:59 68 100 10/27/20 19:54 76 99 10/27/20 19:49 74 99 10/27/20 19:44 70 100 10/27/20 19:39 70 100 10/27/20 19:34 72 99 10/27/20 19:29 72 99 10/27/20 19:24 75 99 10/27/20 19:19 97.7 F 71 16 131/82 100 10/27/20 19:14 69 100 10/27/20 19:09 71 131/82 100 10/27/20 19:04 77 100 10/27/20 18:59 76 99 10/27/20 18:54 74 121/80 100 10/27/20 18:49 76 98 10/27/20 18:44 69 100 10/27/20 18:40 75 122/80 06/21 18:39 80 99 10/27/20 18:34 75 100 10/27/20 18:29 76 98 10/27/20 18:24 114 H 105/76 99 10/27/20 18:19 91 H 98 10/27/20 18:14 77 98 10/27/20 18:09 79 110/70 98 10/27/20 18:04 71 99 10/27/20 17:59 74 99 10/27/20 17:54 66 116/71 99 10/27/20 17:49 89 99 10/27/20 17:44 70 98 10/27/20 17:39 70 108/65 98 10/27/20 17:34 74 99 10/27/20 17:29 68 99 10/27/20 17:24 64 108/65 98 10/27/20 17:19 68 99 10/27/20 17:14 68 98 10/27/20 17:09 68 117/71 99 10/27/20 17:04 66 98 10/27/20 16:59 63 98 10/27/20 16:54 65 116/69 99 10/27/20 16:49 65 98 10/27/20 16:44 68 98 10/27/20 16:39 65 98 10/27/20 16:34 67 98 10/27/20 16:29 68 98 10/27/20 16:24 66 98 10/27/20 16:23 68 117/73 10/27/20 16:19 65 99 10/27/20 16:17 67 117/70 10/27/20 16:14 80 99 10/27/20 16:11 68 115/71 10/27/20 16:09 89 99 10/27/20 16:06 77 106/66 10/27/20 16:04 79 99 10/27/20 16:01 73 110/67 10/27/20 15:59 67 99 10/27/20 15:56 73 106/60 10/27/20 15:54 78 97 10/27/20 15:52 68 113/64 10/27/20 15:49 74 99 10/27/20 15:46 98.1 F 76 16 96/50 99 10/27/20 15:44 72 98 10/27/20 15:42 70 105/51 10/27/20 15:39 68 106/55 98 10/27/20 15:36 68 96/55 10/27/20 15:34 72 98 10/27/20 15:33 70 101/56 10/27/20 15:30 62 108/61 14/21 15:29 74 99 10/27/20 15:27 71 107/61 14/21 15:24 74 107/61 100 1421 15:21 70 108/63 21 15:19 73 100 1421 15:18 74 108/60 10/27/20 15:15 85 122/74 10/27/20 15:14 89 100 10/27/20 15:12 77 130/74 10/27/20 15:09 74 99 10/27/20 15:04 75 99 10/27/20 14:59 88 99 10/27/20 14:54 70 99 10/27/20 14:49 71 99 10/27/20 14:44 76 99 10/27/20 14:35 73 100 10/27/20 14:33 71 107/64 10/27/20 14:30 83 99 10/27/20 14:25 65 99 10/27/20 14:20 66 98 10/27/20 14:15 87 98 10/27/20 14:10 73 99 10/27/20 14:05 66 98 10/27/20 14:00 70 99 10/27/20 13:55 73 98 10/27/20 13:50 101 H 98 10/27/20 13:45 77 98 10/27/20 13:40 77 99 10/27/20 13:35 78 99 10/27/20 13:34 68 114/70 10/27/20 13:30 77 99 10/27/20 13:25 83 99 10/27/20 13:20 78 98 10/27/20 13:15 81 99 10/27/20 13:10 78 98 10/27/20 13:05 85 98 10/27/20 13:00 91 H 97 10/27/20 12:55 79 99 10/27/20 12:50 74 99 10/27/20 12:45 70 99 10/27/20 12:40 86 100 10/27/20 12:35 77 99 10/27/20 12:34 74 109/71 10/27/20 12:30 69 99 10/27/20 12:25 81 100 10/27/20 12:20 71 99 10/27/20 12:18 67 118/76 10/27/20 12:15 100 10/27/20 12:11 98.4 F 18 10/27/20 12:03 71 99 10/27/20 11:58 66 99 10/27/20 11:53 93 H 100 10/27/20 11:48 69 99 10/27/20 11:43 77 99 10/27/20 11:38 71 99 10/27/20 11:33 90 113/82 100 10/27/20 11:28 70 99 10/27/20 11:23 68 100 10/27/20 11:18 79 100 10/27/20 11:13 68 99 10/27/20 11:08 79 99 10/27/20 11:03 78 99 10/27/20 10:58 77 99 10/27/20 10:53 73 99 10/27/20 10:48 64 99 10/27/20 10:43 65 99 10/27/20 10:38 97 H 99 10/27/20 10:33 74 96/62 99 10/27/20 10:28 76 99 10/27/20 10:23 73 99 10/27/20 10:18 83 99 10/27/20 10:13 71 99 10/27/20 10:08 77 99 10/27/20 10:03 68 99 10/27/20 09:58 91 H 99 10/27/20 09:53 81 100 10/27/20 09:48 69 99 10/27/20 09:43 76 99 10/27/20 09:38 75 99 10/27/20 09:33 74 100 10/27/20 09:32 66 130/84 10/27/20 09:31 63 129/78 10/27/20 09:28 69 99 10/27/20 09:17 74 132/89 99 Intake and Output 10/27/20 10/28/20 10/28/20 22:59 06:59 14:59 Intake Total 1926.384 240 240 Output Total 400 600 Balance 1526.384 -360 240 Intake: IV 1925.384 Lactated Ringers 1,000 ml 1915.75 @ 125 mls/hr IV DIRECT [facility] Rx#:[id number] PITOCin/NS 30 UNIT/500ML 10.634 30 units In 500 ml @ 2 mls/hr IV TITR [facility] Rx#: [id number] Oral 240 240 Output: Urine 400 600 Indwelling Catheter 400 Void 600 Other: Total, Intake Amount 240 240 Total, Output Amount 400 600 # Voids Void 1 Estimated Blood Loss 250 - Exam Breasts: Present: normal Abdomen: Present: normal appearance, soft, normal bowel sounds Vulva: both: normal Uterus: Present: normal, firm, fundal height below umbilicus Extremities: Present: normal - Labs Labs: Abnormal lab results 10/27/20 Range/Units 08:41 WBC 12.9 H (4.5-11.0) K/mm3 RDW 16.4 H (13.2-15.2) %
[2020-10-28 10:46] LABS: Hematocrit 31.1 % (30.3-42.9); Hemoglobin 10.1 gm/dl (10.1-14.3)
[2020-10-28] MEDS: DOCUSATE SODIUM 100 MG CAP PO SCH ×2 (11:30→21:52)
[2020-10-28] MEDS: PRENATAL VIT27-FE FUMARATE-FOLIC ACID VIT TAB PO SCH (11:31)
[2020-10-28] MEDS ORDERED: FLU VACC QUAD 2020-2021 (6 months +)/PF 60 0.5 ML SYRINGE IM ONE (12:00)
--- NOTE | 2020-10-28 18:03 | Post Anesthesia Evaluation ---
- Post Anesthesia Evaluation Patient Participated: Yes Airway Patent: Yes Stable Respiratory Function: Yes Nausea/Vomiting: No Temp > 96.8F: Yes Pain Manageable: Yes Adequeate Hydration: Yes Anesthesia Complications: No Block Receding Appropriately: Yes
[2020-10-29] MEDS: IBUPROFEN 600 MG TAB PO SCH ×3 (04:27→12:05)
--- NOTE | 2020-10-29 09:29 | Discharge Summary ---
Providers - Providers Date of Admission: 10/27/20 13:49 Date of discharge: 10/29/20 Attending physician: JACQUELIN MORRIS JR, MD Primary care physician: JACQUELIN MORRIS JR, MD Hospitalization Delivery: Laceration: none Other procedures: none complications: none Discharge diagnosis: IUP at term delivered Hospital course: benign Condition at discharge: Good Disposition: DC-01 TO HOME OR SELFCARE Plan - Provider Discharge Summary Activity: routine, no sex for 6 weeks Diet: routine Instructions: routine Additional instructions: [] Smoking cessation referral if applicable(refer to patient education folder for contact #) [] Refer to [facility] Call your doctor immediately for: * Fever > 100.5 * Heavy vaginal bleeding ( >1 pad per hour) * Severe persistent headache * Shortness of breath * Reddened, hot, painful area to leg or breast * Drainage or odor from incision. * Keep incision clean and dry at all times and follow doctor's instructions regarding bathing/showering - Follow up plan Follow up: JACQUELIN MORRIS JR, MD [Primary Care Provider] - 7 Days
[2020-10-29] MEDS: DOCUSATE SODIUM 100 MG CAP PO SCH (10:50)
[2020-10-29] MEDS: PRENATAL VIT27-FE FUMARATE-FOLIC ACID VIT TAB PO SCH (10:50)
[2020-10-29 15:40] VITALS: BP 127/86
== END 2020-10-29 14:55 | disposition home or self-care (01) | DRG 807 ==
LOC: TRG 02:00 → APU 02:01 → TRG 05:34 → LD 05:34 → OBSVTOIN 13:49 → OB 10-28 00:50
PROVIDERS: ADMIT Obstetrics & Gynecology; ATTEND Obstetrics & Gynecology
PROC: 10D07Z6 Extraction of Products of Conception, Vacuum, Via Natural or Artificial Opening (ICD-10-PCS; principal; 2020-10-27)
PROC: 3E0R3BZ Introduction of Anesthetic Agent into Spinal Canal, Percutaneous Approach (ICD-10-PCS; 2020-10-27)
PROC: 00HU33Z Insertion of Infusion Device into Spinal Canal, Percutaneous Approach (ICD-10-PCS; 2020-10-27)
PROC: 3E0234Z Introduction of Serum, Toxoid and Vaccine into Muscle, Percutaneous Approach (ICD-10-PCS; 2020-10-28)
DX: O80 Encounter for full-term uncomplicated delivery (principal); Z37.0 Single live birth; Z3A.38 38 weeks gestation of pregnancy; Z20.822 Contact with and (suspected) exposure to COVID-19
CPT/HCPCS: 36415; 59025; 76815; 76819; 80307; 81001; 85014; 85018; 85027; 86850; 86900; 86901; 90471; 90686; 90715; 96360; G0378; J2590; J3010; J7120; U0003